=== PATIENT | female | born 1990 | race Caucasian/White ===

== ENCOUNTER 2022-09-17 09:14 | Emergency (ER) | payer OTHER ==
[~2022-09-17] VITALS: Ht 157.5 cm; Wt 125.2 kg
[2022-09-17 09:28] VITALS: BP 110/73; PULSE 94; RESP 20; TEMP 97.7; O2SAT 100
[2022-09-17] MEDS ORDERED: TETRACAINE HCL/PF 0.5% OPTH 4 ML BTL OP ONE (10:40)
[2022-09-17] MEDS ORDERED: FLUORESCEIN OPTH STRIP 1 MG OP ONE (10:40)
[2022-09-17] MEDS ORDERED: TETRACAINE HCL/PF 0.5% OPTH 4 ML BTL ONE (10:41)
[2022-09-17] MEDS ORDERED: FLUORESCEIN OPTH STRIP 1 MG ONE (10:42)
[2022-09-17] MEDS ORDERED: IBUP-2213 PO (10:51)
[2022-09-17 11:46] VITALS: BP 113/77; PULSE 75; RESP 18; TEMP 98.1; O2SAT 98
== END 2022-09-17 11:46 | disposition home or self-care (01) ==
LOC: MED 09:14
DX: B30.9 Viral conjunctivitis, unspecified (principal); Z98.890 Other specified postprocedural states; Z79.1 Long term (current) use of non-steroidal anti-inflammatories (NSAID)
CPT/HCPCS: 99283

== ENCOUNTER 2023-10-22 10:50 | Emergency (ER) | payer OTHER ==
[~2023-10-22] VITALS: Ht 157.5 cm; Wt 133.5 kg
[~2023-10-22 10:50] MED LIST: IBUP-2213 PO
[2023-10-22 11:01] VITALS: BP 126/81; PULSE 97; RESP 16; TEMP 97; O2SAT 98
[2023-10-22 11:15] VITALS: O2SAT 98
[2023-10-22 12:15] LABS: APPEARANCE,URINE CLEAR (CLEAR); BILIRUBIN,URINE NEGATIVE (NEGATIVE); BLOOD, URINE TRACE-L (NEGATIVE); COLOR,URINE YELLOW (YELLOW); LEUKOCYTE ESTERASE ,URINE NEGATIVE (NEGATIVE); NITRITE, URINE NEGATIVE (NEGATIVE); PROTEIN,URINE NEGATIVE (NEGATIVE); UGLUCOSE NEGATIVE (NEGATIVE); UROBILINOGEN,URINE 0.2 EU/dL (0.2 - 1)
[2023-10-22 12:28] LABS: BACTERIA,URINE 10-30 (MOD) /HPF (None Seen); RBC,URINE 0-5 /HPF (0-5); SQUAMOUS EPITHELIAL CELL,UR 4-10 (MOD) /LPF (0-3 (FEW)); WBC,URINE 0-5 /HPF (0-5)
== END 2023-10-22 13:10 | disposition home or self-care (01) ==
LOC: MED 10:50
DX: S06.0X0A Concussion without loss of consciousness, initial encounter (principal); Z79.899 Other long term (current) drug therapy; W22.8XXA Striking against or struck by other objects, initial encounter; Y92.89 Other specified places as the place of occurrence of the external cause; Y93.89 Activity, other specified; Y99.8 Other external cause status
CPT/HCPCS: 81001; 81025; 87086; 99283